=== PATIENT | female | born 1990 | race Hispanic/Latino ===

== ENCOUNTER 2022-05-12 17:49 | Emergency (ER) | payer OTHER ==
[2022-05-12] MEDS ORDERED: Lidocaine 1% PF 5 ML VIAL ONE (18:12)
[2022-05-12] MEDS ORDERED: Boostrix 0.5 ML (Tdap) VIAL (>/=7 yrs of age) ONE (18:22)
== END 2022-05-12 19:24 | disposition home or self-care (01) ==
LOC: ERS 17:49
DX: S81.811A Laceration without foreign body, right lower leg, initial encounter (principal); W26.0XXA Contact with knife, initial encounter
CPT/HCPCS: 12002; 90471; 90715